=== PATIENT | male | born 1930 | race Asian ===

== ENCOUNTER 2021-02-18 06:03 | Inpatient (IN) | payer MEDICARE, BC ==
[~2021-02-18] VITALS: Ht 165.1 cm; Wt 62.1 kg
[2021-02-18] MEDS ORDERED: ACET-2154 PO (06:19)
[2021-02-18] MEDS ORDERED: LEVO112T5 PO (06:19)
[2021-02-18] MEDS ORDERED: MAGN400O6 PO (06:19)
[2021-02-18] MEDS ORDERED: MELATONIN TOP (06:19)
--- NOTE | 2021-02-18 06:30 | NUR ---
Dr. Vallecillo at bedside for MSE.
--- NOTE | 2021-02-18 06:40 | NUR ---
John Paul abdullahi in [facility] - 02/18/21 at 0646 by [id number] Patient out of unit for ct scan via [place].
--- NOTE | 2021-02-18 06:45 | NUR ---
Pt out of ER for CT.
[2021-02-18 06:54] LABS: MEAN CORPUSCULAR HEMOGLOBIN 31.3 uug (23.8-33.4); PLATELET COUNT (AUTO) 163 K/uL (152-348)
[2021-02-18 06:58] LABS: CREATININE 0.8 mg/dL (0.6-1.3); POTASSIUM 4.3 mmol/L (3.5-5.1)
--- NOTE | 2021-02-18 06:59 | NUR ---
Pt back to ER from CT.
--- NOTE | 2021-02-18 07:00 | NUR ---
Received pt 89 yrs male from [facility] RN PT asleepy respiration spont pt back fron ct scan not done pt uncoprative pt pale abdomen soft
[2021-02-18 07:11] LABS: BILIRUBIN,DIRECT 0.1 mg/dL (0.0-0.2); BILIRUBIN,TOTAL 0.3 mg/dL (0.2-1.0); TOTAL PROTEIN, SERUM 4.4 g/dL (6.4-8.2)
[2021-02-18] MEDS ORDERED: MORPHINE SULFATE 4 MG/1 ML DISP.SYRIN IV ONE (07:15)
[2021-02-18 07:33] LABS: HEMATOCRIT 14.2 % (36.7-47.1)
[2021-02-18 07:34] LABS: THYROID STIMULATING HORMONE 3.801 mIU/mL (0.358-3.740)
[2021-02-18] MEDS ORDERED: MORPHINE SULFATE 4 MG/1 ML DISP.SYRIN ONE (07:38)
[2021-02-18 07:41] LABS: ACETAMINOPHEN < 2.0 ug/mL (10-30)
--- NOTE | 2021-02-18 08:00 | NUR ---
see pt had BM BLCK CORE stool for OB done md postive skin care done morphine 3mg give to ct scan of head and abdomin
[2021-02-18 08:04] LABS: IRON, SERUM 18 ug/dL (50-175)
--- NOTE | 2021-02-18 08:55 | NUR ---
sign concent for blood trransfution fully and verblized understood
--- NOTE | 2021-02-18 09:43 | NUR ---
started 1 unit of blood transfution fallow p&p with 2 RN AT BED side 15 min no transfution reation
--- NOTE | 2021-02-18 10:59 | NUR ---
Resting and asleepy no abdominal pain noted at bed side waitng for inpt kristina blood transfution going on AT THIS TIME
--- NOTE | 2021-02-18 11:12 | NUR ---
COMPLET 1 unit of blood transfution no any s&s of transfution reaction
--- NOTE | 2021-02-18 12:39 | NUR ---
resting and asleepy wating for talemetery bed
[2021-02-18] MEDS: QUETIAPINE FUMARATE 25 MG TABLET PO PRN (12:44)
[2021-02-18] MEDS ORDERED: QUETIAPINE FUMARATE 25 MG TABLET ONE (12:50)
--- NOTE | 2021-02-18 13:30 | NUR ---
had bm scanty black color skine care done
[2021-02-18 14:25] LABS: LYMPHOCYTES % (MANUAL) 8 % (20-40); NEUTROPHILS % (MANUAL) 88 % (42-75)
[2021-02-18 14:26] LABS: MONOCYTES % (MANUAL) 4 % (2-10)
--- NOTE | 2021-02-18 14:43 | NUR ---
STarted 2nd unite of PRBC 2 nurse rn at bed side fallow p&p infused and patent no blood reaction for firest 15 min
--- NOTE | 2021-02-18 16:00 | NUR ---
WATING FOR ROOM TELMETER BED
--- NOTE | 2021-02-18 18:30 | NUR ---
VIC MATOS HERE SEE AND examine pt spook with aware sbp go down 78mmhg 2 unite of back cell was given
--- NOTE | 2021-02-18 19:00 | NUR ---
PT HAD BM BLACK COLOR LARGE AMT I&O CATHETER DONE UA sent to lab
--- NOTE | 2021-02-18 19:08 | NUR ---
John Paul abdullahi in [facility] - 02/18/21 at 1956 by MARIA ELENA RECEIVED REPORT FROM [facility], REGISTRY. PT NOTED TO BE IN BED, RESTING COMFORTABLY.
--- NOTE | 2021-02-18 19:12 | NUR ---
RECEIVED REPORT FROM [facility], REGISTRY. PT NOTED TO BE IN BED, RESTING COMFORTABLY.
--- NOTE | 2021-02-18 19:30 | NUR ---
hand off to LISHA MABRY
--- NOTE | 2021-02-18 19:54 | NUR ---
ASSISTED PT TO USE URINATL, URINE OUTPUT OF 325CC NOTED.
[2021-02-18] MEDS ORDERED: FUROSEMIDE 20 MG/2 ML VIAL IV ONE (20:00)
[2021-02-18] MEDS ORDERED: ACETAMINOPHEN 650 MG SUPP.RECT RC PRN (20:00)
[2021-02-18] MEDS ORDERED: BISACODYL 10 MG SUPP.RECT RC PRN (20:00)
[2021-02-18] MEDS ORDERED: ONDANSETRON 4 MG/2 ML VIAL IV PRN (20:00)
[2021-02-18] MEDS ORDERED: BISACODYL 10 MG SUPP.RECT RC ONE ×2 (20:00→20:51)
[2021-02-18 20:07] LABS: *BILIRUBIN,URIN NEGATIVE (NEGATIVE); *BLOOD, URINE NEGATIVE (NEGATIVE); *CLARITY,URINE CLEAR (CLEAR); *COLOR,URINE YELLOW (YELLOW); *KETONES,URINE NEGATIVE (NEGATIVE); *UROBILINOGEN,URINE 0.2 E.U./dl (NORMAL); LEUKOCYTE ESTERASE ,URINE NEGATIVE (NEGATIVE); NITRITE, URINE NEGATIVE (NEGATIVE); UGLUCOSE NEGATIVE (NEGATIVE)
[2021-02-18 20:09] LABS: MEAN CORPUSCULAR HEMOGLOBIN 30.8 uug (23.8-33.4); MEAN CORPUSCULAR VOLUME 89.1 fL (73.0-96.2); PLATELET COUNT (AUTO) 107 K/uL (152-348)
[2021-02-18 20:12] LABS: HEMATOCRIT 19.2 % (36.7-47.1)
[2021-02-18 20:18] LABS: *AMPHETAMINE, URINE NEGATIVE (NEGATIVE); *CANNABINOID, URINE NEGATIVE (NEGATIVE); *COCCAINE, URINE NEGATIVE (NEGATIVE); *OPIATE, URINE POSITIVE (NEGATIVE); *PHENCYCLIDINE SCREEN,URINE NEGATIVE (NEGATIVE); BACTERIA,URINE NONE SEEN /HPF (NONE SEEN); RBC,URINE NONE SEEN /HPF (0-3); SQUAMOUS EPITHELIAL CELL,UR NONE SEEN /HPF (NONE SEEN); WBC,URINE 0-3 /HPF (0-3)
[2021-02-18 20:30] VITALS: BP 118/58
[2021-02-18 20:42] LABS: EOSINOPHILS % (MANUAL) 1 % (0-8); LYMPHOCYTES % (MANUAL) 13 % (20-40); MONOCYTES % (MANUAL) 9 % (2-10); NEUTROPHILS % (MANUAL) 77 % (42-75)
[2021-02-18] MEDS ORDERED: FUROSEMIDE 20 MG/2 ML VIAL ONE (20:51)
--- NOTE | 2021-02-18 22:00 | NUR ---
GAVE REPORT TO CLOTILDE HOLLINGSWORTH.
[2021-02-18 22:30] VITALS: BP 118/58
--- NOTE | 2021-02-18 22:30 | NUR ---
Pt. admitted to CCU BED 4 , under care of Dr. ROGER Belongs List completed
--- NOTE | 2021-02-18 22:30 | NUR ---
Received patient from ER, here for AMS and severe anemia. Transfused 2 units RBCs in the ER. Patient currently responsive to verbal and tactile stimuli, though is non-verbal, doesn't appear to even register when I say to him. Sinus rhythm on the monitor with PACs, BP stable, on room air SAT 97-100%. Skin appears clear. Bilateral lower extremities are quite rigid and board-like. Upper extremities also rigid at 90 degree angles. Patient arrived in a diaper, will hold on inserting a Francisco due to CT showing very enlarged prostate.
[2021-02-18] MEDS: PIPERACILLIN SODIUM/TAZOBACTAM 3.375 G in IV DEXTROSE 5% 50 ML IV SCH (22:55)
[2021-02-18] MEDS: IV D5/ 0.9% NACL 1,000 ML IV PRN (22:55)
[2021-02-18 23:00] VITALS: BP 110/52
[2021-02-19] VITALS (24 sets, daily range): BP systolic 95–130; BP diastolic 42–72
--- NOTE | 2021-02-19 00:30 | NUR ---
Fecal impaction removed via mechanical digital extraction and tap water enema. Patient produced large amounts of formed and soft tarry stools black in appearance. Abdomen soft and nontender, no distension noted.
[2021-02-19 05:35] LABS: MEAN CORPUSCULAR HEMOGLOBIN 30.2 uug (23.8-33.4); MEAN CORPUSCULAR VOLUME 89.3 fL (73.0-96.2); PLATELET COUNT (AUTO) 109 K/uL (152-348)
[2021-02-19 05:51] LABS: BILIRUBIN,TOTAL 0.5 mg/dL (0.2-1.0); CREATININE 0.8 mg/dL (0.6-1.3); MAGNESIUM 2.1 mg/dL (1.8-2.4); PHOSPHOROUS 3.3 mg/dL (2.5-4.9); POTASSIUM 3.5 mmol/L (3.5-5.1); TOTAL PROTEIN, SERUM 4.6 g/dL (6.4-8.2)
[2021-02-19] MEDS: PIPERACILLIN SODIUM/TAZOBACTAM 3.375 G in IV DEXTROSE 5% 50 ML IV SCH ×3 (05:52→21:34)
[2021-02-19 05:58] LABS: HEMATOCRIT 20.3 % (36.7-47.1)
[2021-02-19] MEDS ORDERED: PANTOPRAZOLE SODIUM 40 MG VIAL IV SCH (09:00)
[2021-02-19] MEDS: QUETIAPINE FUMARATE 25 MG TABLET PO PRN (09:47)
[2021-02-19] MEDS: LORAZEPAM 2 MG/1 ML VIAL IV PRN ×2 (14:26→20:54)
[2021-02-19] MEDS: IV D5/ 0.9% NACL 1,000 ML IV PRN (14:30)
[2021-02-19 15:28] LABS: EOSINOPHILS % (MANUAL) 2 % (0-8); LYMPHOCYTES % (MANUAL) 11 % (20-40); MONOCYTES % (MANUAL) 6 % (2-10); NEUTROPHILS % (MANUAL) 81 % (42-75)
[2021-02-19] MEDS ORDERED: IV DEXTROSE 5% 100 ML BAG IV PRN (19:00)
--- NOTE | 2021-02-19 19:00 | NUR ---
received awake , unable to follow command , on room air , dr atkins is here to see patient , dw at 75 ml/ hr , incontinent no fever
[2021-02-19] MEDS: IV D5W 1000ML 1,000 ML IV PRN (19:44)
[2021-02-19] MEDS: PANTOPRAZOLE SODIUM 40 MG VIAL IV SCH (20:45)
--- NOTE | 2021-02-19 21:00 | NUR ---
kaylah id is here to see patient , updates given about the patient
[2021-02-19] MEDS: MORPHINE SULFATE 2 MG/1 ML DISP.SYRIN IV PRN (23:50)
--- NOTE | 2021-02-19 23:50 | NUR ---
report given to yosi , history and dx , medication given and plan and results of radiology , iv started 22 ga left ac , right 18 ga , patient pulled out , pressure applied
--- NOTE | 2021-02-20 00:15 | NUR ---
RECEIVED PT FROM CCU. PT IN NO ACUTE DISTRESS. IV INTACT. SAFETY AND COMFORT PROVIDED. WILL CONTINUE TO MONITOR. Addendum: 02/20/21 at 0349 by ELLIE LANGE RN PER REPORT PT HAD 1 UNIT PRBC FOR HEMOGLOBIN OF 6.9. AM LABS ORDERED.
--- NOTE | 2021-02-20 04:00 | NUR ---
belongings sent and given to the nurse
[2021-02-20] MEDS: LORAZEPAM 2 MG/1 ML VIAL IV PRN (04:37)
--- NOTE | 2021-02-20 04:37 | NUR ---
Pt restless, trying to pull out his iv,and disturbing other pt by screaming. Ativan 0.5mg prn given. Pt tolerated it well. Pt on sinus rhythm and oxygen saturation of 95%. Will continue to monitor.
--- NOTE | 2021-02-20 05:24 | NUR ---
PT SLEPT INTERMITTENTLY. PT IN NO ACUTE DISTRESS. PT STABLE. PT CONFUSED.PRESCRIBED MEDICATION GIVEN AND PT TOLERATED IT WELL. PT ON SINUS RHYTHM.. SAFETY AND COMFORT PROVIDED. ALL NEEDS ARE MET. WILL ENDORSE TO INCOMING NURSE FOR CONTINUITY OF CARE.
[2021-02-20] MEDS: PIPERACILLIN SODIUM/TAZOBACTAM 3.375 G in IV DEXTROSE 5% 50 ML IV SCH (05:27)
[2021-02-20 07:07] LABS: HEMATOCRIT 24.9 % (36.7-47.1); MEAN CORPUSCULAR HEMOGLOBIN 31.2 uug (23.8-33.4); MEAN CORPUSCULAR VOLUME 92.4 fL (73.0-96.2); PLATELET COUNT (AUTO) 101 K/uL (152-348)
[2021-02-20 07:47] LABS: CREATININE 0.7 mg/dL (0.6-1.3); POTASSIUM 3.2 mmol/L (3.5-5.1)
--- NOTE | 2021-02-20 08:00 | NUR ---
RECEIVED PATIENT SEVERELY CONFUSED X3, UNABLE TO FOLLOW INSTRUCTION, KEPT NPO DUE TO ALOC. SR ON MONITOR
[2021-02-20] MEDS: PANTOPRAZOLE SODIUM 40 MG VIAL IV SCH ×2 (08:05→21:13)
[2021-02-20] MEDS: QUETIAPINE FUMARATE 25 MG TABLET PO PRN ×2 (08:34→16:19)
[2021-02-20] MEDS: IV D5W 1000ML 1,000 ML IV PRN (10:00)
[2021-02-20] MEDS: POTASSIUM CHLORIDE 50 ML IV SCH ×4 (10:20→13:10)
[2021-02-20 11:59] VITALS: BP 121/55
--- NOTE | 2021-02-20 12:00 | NUR ---
NO ACUTE CHANGE FROM MORNING ASSESSMENT, CONTINUE IVF ORDERED
[2021-02-20] MEDS: PIPERACILLIN SODIUM/TAZOBACTAM 3.375 G in IV DEXTROSE 5% 100 ML IV SCH ×2 (14:51→21:13)
[2021-02-20 16:00] VITALS: BP 121/67
--- NOTE | 2021-02-20 18:48 | NUR ---
CONTINUE NPO ORDERED. PATIENT REMAINS CONFUSED AND DISORIENTED X3 CLOSELY MONITORED
--- NOTE | 2021-02-20 19:30 | NUR ---
RECEIVED PT IN NO ACUTE DISTRESS. PT CONFUSED. IV INTACT. SAFETY AND COMFORT PROVIDED. WILL CONTINUE TO MONITOR.
[2021-02-20 20:30] VITALS: BP 128/63
[2021-02-21] MEDS: LORAZEPAM 2 MG/1 ML VIAL IV PRN (00:03)
--- NOTE | 2021-02-21 01:05 | NUR ---
AT 0003H ATIVAN PRN GIVEN FOR PT FOR RESTLESSNESS, PT TRYING TO PULL OUT HIS IV. PT VITAL SIGNS STABLE. SAFETY PROVIDED. WILL CONTINUE TO MONITOR.
[2021-02-21] MEDS: IV D5W 1000ML 1,000 ML IV PRN (01:12)
[2021-02-21 04:30] VITALS: BP 142/64
--- NOTE | 2021-02-21 05:07 | NUR ---
PT IN NO ACUTE DISTRESS. CALLED OF THE PT LAST NIGHT FOR CONSENT EGD LATER. PT IN NO ACUTE DISTRESS. PT STABLE. SAFETY AND COMFORT PROVIDED. ALL NEEDS ARE MET.WILL ENDORSE TO INCOMING NURSE FOR CONTINUITY OF CARE.
[2021-02-21 05:17] VITALS: BP 156/75
[2021-02-21] MEDS: PIPERACILLIN SODIUM/TAZOBACTAM 3.375 G in IV DEXTROSE 5% 100 ML IV SCH (05:21)
--- NOTE | 2021-02-21 08:00 | NUR ---
RECEIVED PATIENT AWAKE BUT REMAINS CONFUSED X3, NO SIGNS OF DISTRESS KEPT NPO FOR EGD
[2021-02-21] MEDS: PANTOPRAZOLE SODIUM 40 MG VIAL IV SCH ×2 (08:09→22:22)
[2021-02-21 08:28] LABS: HEMATOCRIT 26.1 % (36.7-47.1); MEAN CORPUSCULAR VOLUME 89.4 fL (73.0-96.2); PLATELET COUNT (AUTO) 117 K/uL (152-348)
[2021-02-21 08:35] LABS: CREATININE 0.7 mg/dL (0.6-1.3); POTASSIUM 3.5 mmol/L (3.5-5.1)
[2021-02-21 08:53] VITALS: BP 137/65
[2021-02-21] MEDS: CALCIUM CARB/VITAMIN D 600-400 MG TABLET PO SCH (09:00)
--- NOTE | 2021-02-21 11:36 | NUR ---
Clinical Social Work Note Social work consultation was requested as family wanted to discuss DNR status. JUAN spoke with patients Kasandra Pelaez [phone] who requested to speak with SW. Mrs. Pelaez stated that she wanted help with setting up DNR, but that has been done with the help of the nurse connecting her to the MD. MD, Dr. Reyes, has now put patient on DNR. Mrs. Slaughter stated there was no other supported she needed from at this moment.
[2021-02-21 11:55] VITALS: BP 123/66
[2021-02-21 16:07] VITALS: BP 96/74
--- NOTE | 2021-02-21 18:06 | NUR ---
WENT TO OR FOR EGD BY DR HANCOCK VIA BED
--- NOTE | 2021-02-21 21:15 | NUR ---
BACK FROM EGD VIA BED, NREEDS ATTENDED TO,DNR STATUS,ON ROOM AIR,REPOSITIONED FOR COMFORT.
[2021-02-21 22:20] VITALS: BP 136/51
--- NOTE | 2021-02-22 00:48 | NUR ---
NO ACUTE DISTRESS NOTED.SLEPT AT LONG INTERVALS.
[2021-02-22 04:30] VITALS: BP 122/35
--- NOTE | 2021-02-22 06:15 | NUR ---
uneventful night, slept throughout the night, no acute distress. call lights within reach, safety measures maintained, bed alarm on
[2021-02-22] MEDS: LEVOTHYROXINE SODIUM 112 MCG TABLET PO SCH (06:40)
[2021-02-22 08:00] VITALS: BP 130/68
--- NOTE | 2021-02-22 08:00 | NUR ---
Pt received asleep, in his bed. Pt difficult to wake up, falls back asleep. Breathing is unlabored, no distress. IV D5 running at 75cc. Side rails are up. Comfort provided.
[2021-02-22 08:06] LABS: HEMATOCRIT 24.3 % (36.7-47.1); MEAN CORPUSCULAR HEMOGLOBIN 30.2 uug (23.8-33.4); MEAN CORPUSCULAR VOLUME 88.2 fL (73.0-96.2); PLATELET COUNT (AUTO) 127 K/uL (152-348)
[2021-02-22 08:10] LABS: CREATININE 0.6 mg/dL (0.6-1.3); POTASSIUM 3.2 mmol/L (3.5-5.1)
[2021-02-22] MEDS: CALCIUM CARB/VITAMIN D 600-400 MG TABLET PO SCH (09:00)
[2021-02-22] MEDS ORDERED: POTASSIUM CHLORIDE 20 MEQ TAB.PRT.SR PO ONE (10:45)
[2021-02-22 11:05] VITALS: BP 115/46
[2021-02-22] MEDS: IV D5W 1000ML 1,000 ML IV PRN (11:27)
[2021-02-22 11:31] LABS: *RHEUMATOID FACTOR SCREEN NEGATIVE (NEGATIVE)
[2021-02-22] MEDS: PANTOPRAZOLE SODIUM 40 MG VIAL IV SCH ×2 (11:32→21:26)
[2021-02-22 12:31] LABS: FERRITIN 22 ng/mL (26-388)
[2021-02-22] MEDS ORDERED: POTASSIUM CHLORIDE 20 MEQ POWDER PACKET PO ONE (14:45)
[2021-02-22 15:03] VITALS: BP 127/46
--- NOTE | 2021-02-22 17:00 | NUR ---
Pt was evaluated by speech therapy. Pt is ordered Full liquid diet, nectar thick. Signs are posted in the room.
[2021-02-22] MEDS: SOD FERRIC GLUC COMPLX/SUCROSE 125 MG in IV NORMAL SALINE 100 ML IV SCH (17:13)
--- NOTE | 2021-02-22 18:45 | NUR ---
Pt is resting in bed. pt was mostly asleep during the shift. No distress noted. pt was able to have small amount of liquids (boost, Jello.), side rails are up.
[2021-02-22] MEDS ORDERED: PROPOFOL 200 MG/20 ML BOTTLE IV ONE (18:56)
--- NOTE | 2021-02-22 19:30 | NUR ---
NSG: RECEIVED PT LYING ON BED IN HER ROOM. NO ACUTE DISTRESS. PT CONFUSED. SAFETY AND COMFORT PROVIDED. WILL CONTINUE TO MONITOR.
[2021-02-22 20:00] VITALS: BP 127/54
--- NOTE | 2021-02-22 20:00 | NUR ---
NSG: RECEIVED PT LYING ON BED. PATIENT IN NO ACUTE DISTRESS. PT CONFUSED. IV INTACT. SAFETY AND COMFORT PROVIDED. FAMILY MEMBER AT BED SIDE AT THIS TIME. WILL CONTINUE TO MONITOR.
[2021-02-23] MEDS: IV D5W 1000ML 1,000 ML IV PRN ×2 (00:23→20:57)
[2021-02-23 04:00] VITALS: BP 117/43
--- NOTE | 2021-02-23 05:12 | NUR ---
NSG: Patient slept well throughout the night, no acute distress. call lights within reach, safety measures maintained, bed alarm on. assisted with adl's. continue plan of care.
[2021-02-23] MEDS: LEVOTHYROXINE SODIUM 112 MCG TABLET PO SCH (06:27)
[2021-02-23 08:00] VITALS: BP 95/46
--- NOTE | 2021-02-23 08:00 | NUR ---
Pt received in his bed, awake, but not able to verbally respond. Pt is calm, Right Upper Midline site is intact, D5 is running at 75cc. No fever. O2 canula is in place with 2lpm. No signs of distress. Pt is on Full liquid diet.
[2021-02-23 08:03] LABS: MEAN CORPUSCULAR HEMOGLOBIN 30.4 uug (23.8-33.4); PLATELET COUNT (AUTO) 123 K/uL (152-348)
[2021-02-23 08:40] LABS: CREATININE 0.6 mg/dL (0.6-1.3); POTASSIUM 3.2 mmol/L (3.5-5.1)
[2021-02-23] MEDS ORDERED: POTASSIUM CHLORIDE 20 MEQ POWDER PACKET PO ONE (09:30)
[2021-02-23] MEDS: PANTOPRAZOLE SODIUM 40 MG VIAL IV SCH ×2 (09:36→20:52)
[2021-02-23] MEDS: CALCIUM CARB/VITAMIN D 600-400 MG TABLET PO SCH (09:36)
[2021-02-23] MEDS: BOOST PLUS 237 ML LIQUID (RICH CHOCOLATE) PO SCH ×2 (09:43→17:00)
[2021-02-23 12:00] VITALS: BP 127/65
[2021-02-23] MEDS: SOD FERRIC GLUC COMPLX/SUCROSE 125 MG in IV NORMAL SALINE 100 ML IV SCH (14:43)
[2021-02-23 16:00] VITALS: BP 112/42
[2021-02-23 20:18] VITALS: BP 114/47
[2021-02-23] MEDS: QUETIAPINE FUMARATE 25 MG TABLET PO PRN (21:05)
[2021-02-24] MEDS: LEVOTHYROXINE SODIUM 112 MCG TABLET PO SCH (06:37)
--- NOTE | 2021-02-24 06:52 | NUR ---
Pt slept intermittently throughout the night. Easily arousable for care, but pt non-verbal. JIM midline still patent and intact with ongoing D5 NS 1L running at 75 ml/hr. All due meds given and tolerated well. All needs attended. Frequent visual checks done. Will endorse to next shift.
[2021-02-24 07:57] LABS: HEMATOCRIT 22.5 % (36.7-47.1); MEAN CORPUSCULAR HEMOGLOBIN 30.2 uug (23.8-33.4); MEAN CORPUSCULAR VOLUME 89.6 fL (73.0-96.2); PLATELET COUNT (AUTO) 127 K/uL (152-348)
[2021-02-24] MEDS: PANTOPRAZOLE SODIUM 40 MG VIAL IV SCH ×2 (08:21→20:42)
[2021-02-24] MEDS: CALCIUM CARB/VITAMIN D 600-400 MG TABLET PO SCH (08:21)
[2021-02-24] MEDS: BOOST PLUS 237 ML LIQUID (RICH CHOCOLATE) PO SCH ×2 (08:23→17:50)
[2021-02-24 08:24] LABS: CREATININE 0.8 mg/dL (0.6-1.3); POTASSIUM 3.9 mmol/L (3.5-5.1)
[2021-02-24 11:26] VITALS: BP 106/63
[2021-02-24] MEDS: SOD FERRIC GLUC COMPLX/SUCROSE 125 MG in IV NORMAL SALINE 100 ML IV SCH (13:55)
[2021-02-24] MEDS ORDERED: SUCRALFATE 1 G TABLET PO SCH (14:00)
[2021-02-24 16:00] VITALS: BP 103/66
[2021-02-24] MEDS: SUCRALFATE 1 G TABLET PO SCH ×2 (16:22→20:42)
--- NOTE | 2021-02-24 19:04 | NUR ---
pt in bed awake and responsive. no resp distress noted. assisted with dinner. no n/v/d noted. hob elevated at all times for aspiration precautions. due meds given and tolerated. safety measures in place. needs attended to. cont monitor.
--- NOTE | 2021-02-24 19:30 | NUR ---
RECEIVED PT IN NO ACUTE DISTRESS. PT CONFUSED. PT ON 2L NASAL CANNULA. PT IV INTACT. SAFETY AND COMFORT PROVIDED. WILL CONTINUE TO MONITOR.
[2021-02-24 20:00] VITALS: BP 105/78
[2021-02-24] MEDS: LORAZEPAM 2 MG/1 ML VIAL IV PRN (20:43)
--- NOTE | 2021-02-24 21:50 | NUR ---
PT GIVEN ATIVAN 0.5MG AT 2042H FOR RESTLESSNESS,PT TRYING PULL OUT HIS IV. AFTER AN HOUR PT RELAX AND SLEEPING. PT IN NO ACUTE DISTRESS. PT STABLE. WILL CONTINUE TO MONITOR.
[2021-02-25] VITALS (8 sets, daily range): BP systolic 92–138; BP diastolic 42–71
[2021-02-25] MEDS: LEVOTHYROXINE SODIUM 112 MCG TABLET PO SCH (06:24)
[2021-02-25] MEDS: SUCRALFATE 1 G TABLET PO SCH ×4 (06:31→20:53)
--- NOTE | 2021-02-25 06:38 | NUR ---
PT SLEPT INTERMITTENTLY. IV INTACT. PT ON 2L NASAL CANNULA. PT TURNED AND REPOSITIONED.PT CONFUSED AND NEEDS REORIENTATION. SAFETY AND COMFORT PROVIDED. ALL NEEDS ARE MET. WILL ENDORSE TO INCOMING NURSE FOR CONTINUITY OF CARE.
--- NOTE | 2021-02-25 07:30 | NUR ---
received pt sleeping . no resp distress. on nc 2 Lpm satting 95% no sob noted. eduarda midline intact. safety measures in place. will cont to monitor.
[2021-02-25 07:32] LABS: MEAN CORPUSCULAR HEMOGLOBIN 30.4 uug (23.8-33.4); MEAN CORPUSCULAR VOLUME 90.7 fL (73.0-96.2); PLATELET COUNT (AUTO) 134 K/uL (152-348)
[2021-02-25 07:42] LABS: HEMATOCRIT 19.9 % (36.7-47.1)
[2021-02-25] MEDS: PANTOPRAZOLE SODIUM 40 MG VIAL IV SCH ×2 (08:37→21:12)
[2021-02-25] MEDS: CALCIUM CARB/VITAMIN D 600-400 MG TABLET PO SCH (08:37)
[2021-02-25] MEDS: BOOST PLUS 237 ML LIQUID (RICH CHOCOLATE) PO SCH ×2 (08:43→16:51)
[2021-02-25 09:27] LABS: CREATININE 0.7 mg/dL (0.6-1.3); POTASSIUM 3.9 mmol/L (3.5-5.1)
[2021-02-25] MEDS: LORAZEPAM 2 MG/1 ML VIAL IV PRN (10:45)
--- NOTE | 2021-02-25 12:48 | NUR ---
spoke with christiano at lab, blood won't be ready until after 2:30. at bedside made aware. hydraulic hammer operator keh aware.
[2021-02-25] MEDS: SOD FERRIC GLUC COMPLX/SUCROSE 125 MG in IV NORMAL SALINE 100 ML IV SCH (14:07)
[2021-02-25 15:30] LABS: EOSINOPHILS % (MANUAL) 3 % (0-8); LYMPHOCYTES % (MANUAL) 10 % (20-40); MONOCYTES % (MANUAL) 7 % (2-10); NEUTROPHILS % (MANUAL) 80 % (42-75)
--- NOTE | 2021-02-25 15:34 | NUR ---
per 's request to give suppository now instead of later.
[2021-02-25] MEDS: MORPHINE SULFATE 2 MG/1 ML DISP.SYRIN IV PRN ×2 (16:27→21:18)
--- NOTE | 2021-02-25 18:55 | NUR ---
alert and responsive. no acute distress. had episode of agitation today. provided calm and quiet environment. pt calms down when holds his hand. no sob noted. safety measures kept. needs attended to. cont to monitor.
--- NOTE | 2021-02-25 20:00 | NUR ---
PATIENT ASLEEP IN BED, EASILY AROUSABLE. PATIENT RECEIVING BLOOD TRANSFUSION, AT BEDSIDE. VS WNL. NO S/S OF RESP. DISTRESS NOTED. BED ALARM ON. ALL NEEDS ATTENDED.
[2021-02-25] MEDS ORDERED: CLARITHROMYCIN 250 MG TABLET PO SCH (21:00)
[2021-02-25] MEDS: AMOXIcillin 500 MG CAPSULE PO SCH (21:36)
--- NOTE | 2021-02-25 21:40 | NUR ---
BLOOD FINISHED. TRANSFUSED WELL. NO REACTION NOTED.
[2021-02-25 22:41] LABS: *OCCULT BLOOD STOOL POSITIVE (NEGATIVE)
[2021-02-26 04:48] VITALS: BP 134/45
[2021-02-26] MEDS: LEVOTHYROXINE SODIUM 112 MCG TABLET PO SCH (06:05)
--- NOTE | 2021-02-26 08:00 | NUR ---
ALERT BUT NON VERBAL, MOANS ON AND OFF AT BEDSIDE AND SPOKE WITH HOSPITALIST REGARDING PLAN OF CARE
[2021-02-26] MEDS: SUCRALFATE 1 G TABLET PO SCH ×4 (08:09→21:00)
[2021-02-26] MEDS: BOOST PLUS 237 ML LIQUID (RICH CHOCOLATE) PO SCH ×2 (08:10→17:00)
[2021-02-26 08:12] LABS: HEMATOCRIT 24.2 % (36.7-47.1); MEAN CORPUSCULAR HEMOGLOBIN 30.7 uug (23.8-33.4); MEAN CORPUSCULAR VOLUME 89.5 fL (73.0-96.2); PLATELET COUNT (AUTO) 142 K/uL (152-348)
[2021-02-26 08:20] LABS: CREATININE 0.7 mg/dL (0.6-1.3); POTASSIUM 3.8 mmol/L (3.5-5.1)
[2021-02-26] MEDS: PANTOPRAZOLE SODIUM 40 MG VIAL IV SCH ×2 (08:21→22:11)
[2021-02-26] MEDS: CALCIUM CARB/VITAMIN D 600-400 MG TABLET PO SCH (08:21)
[2021-02-26] MEDS: CLARITHROMYCIN 500 MG TABLET PO SCH ×2 (10:50→21:00)
[2021-02-26] MEDS: AMOXIcillin 500 MG CAPSULE PO SCH ×2 (11:02→17:00)
[2021-02-26] MEDS: MORPHINE SULFATE 2 MG/1 ML DISP.SYRIN IV PRN (11:12)
[2021-02-26 12:00] VITALS: BP 109/40
--- NOTE | 2021-02-26 13:00 | NUR ---
PATIENT MOANING ON AND OFF MEDICATED WITH MORPHINE WITH GOOD RELIEF
[2021-02-26] MEDS ORDERED: CLAR-45 PO (13:47)
[2021-02-26] MEDS ORDERED: PANT40TA2 PO (13:47)
[2021-02-26] MEDS ORDERED: AMOX500C2 PO (13:47)
[2021-02-26] MEDS: SOD FERRIC GLUC COMPLX/SUCROSE 125 MG in IV NORMAL SALINE 100 ML IV SCH (15:02)
[2021-02-26 16:00] VITALS: BP 116/48
[2021-02-26 17:01] LABS: *IMMUNOGLOBULIN G, SERUM 540 Low; IMMUNOGLOBULIN A, SERUM 139
[2021-02-26 17:02] LABS: ALPHA-1-GLOBULIN 0.3; ALPHA-2-GLOBULIN 0.6; IMMUNOGLOBULIN M, SERUM 20
[2021-02-26 17:03] LABS: BETA GLOBULIN 0.7; GAMMA GLOBULIN 0.5; GLOBULIN, TOTAL 2.1 Low; M-SPIKE Not Observed
[2021-02-26 17:04] LABS: A/G RATIO 1.1
[2021-02-26 17:11] LABS: ANTI-DNA(DS) AB, QN <1
[2021-02-26 17:12] LABS: *ANTI-SCLERODERMA-70 AB <0.2; *SJOGREN'S ANTI-SS-A >8.0 High; *SJOGREN'S ANTI-SS-B <0.2; *SMITH ANTIBODIES <0.2
--- NOTE | 2021-02-26 18:25 | NUR ---
PLAN DISCHARGE IN AM WITH PENDING HOSPICE CARE. AWARE
--- NOTE | 2021-02-26 20:08 | NUR ---
REceived with at bedside.awake
[2021-02-26 20:18] VITALS: BP 115/40
--- NOTE | 2021-02-26 21:09 | NUR ---
medication po not given.patient is asleep .unable to determine if patient is able to tolerate po medication
[2021-02-27 04:28] VITALS: BP 106/45
[2021-02-27] MEDS: LEVOTHYROXINE SODIUM 112 MCG TABLET PO SCH (07:00)
--- NOTE | 2021-02-27 07:10 | NUR ---
cleaned and kept dry. medication due unable to give.patient is asleep.
[2021-02-27] MEDS: SUCRALFATE 1 G TABLET PO SCH ×2 (07:30→11:30)
--- NOTE | 2021-02-27 07:46 | NUR ---
REPORT GIVEN TO THE DAY SHIFT RN THAT THE MEDICATIONS DUE WERE NOT GIVEN PATIENT IS ASLEEP AND DO NOT RESPOND TO VERBALLY. NEEDS TO FOLLOW UP WITH THE SWALLOW EVALUATION RN ABOUT THE RESULT OF THE SWALLOW EVALUATION Addendum: 02/27/21 at 0753 by REGISTRY [facility] INPATIENT RN3 RN FOR HOSPICE EVALUATION THIS MORNING IS AWARE.
[2021-02-27] MEDS: BOOST PLUS 237 ML LIQUID (RICH CHOCOLATE) PO SCH (08:00)
[2021-02-27] MEDS: AMOXIcillin 500 MG CAPSULE PO SCH (09:00)
[2021-02-27] MEDS: CALCIUM CARB/VITAMIN D 600-400 MG TABLET PO SCH (09:00)
[2021-02-27] MEDS: PANTOPRAZOLE SODIUM 40 MG VIAL IV SCH (09:00)
[2021-02-27] MEDS: CLARITHROMYCIN 500 MG TABLET PO SCH (09:00)
--- NOTE | 2021-02-27 09:37 | NUR ---
PATIENT IS UNABLE TO SWALLOW
[2021-02-27 10:25] VITALS: BP 127/51
--- NOTE | 2021-02-27 11:00 | NUR ---
patient discharged to [facility], family bedside, no skin issues noted, family at bedside refused the discharge pictures to be taken, family stated his skin is fine. patient skin is intact, ID and IV access removed, no acute distress noted, stable condition, patient discharged on hospice service. instructions given to family and sent with ambulance.
== END 2021-02-27 11:25 | DRG 374 ==
LOC: ER 06:10 → OBSER 12:11 → CCU 22:07 → TELE-TD3 02-20 00:01 → TELE3 02-20 00:51 → MEDSURG3 02-20 09:54
PROVIDERS: ADMIT Internal Medicine; ATTEND Nurse Practitioner Acute Care
PROC: 30233N1 Transfusion of Nonautologous Red Blood Cells into Peripheral Vein, Percutaneous Approach (ICD-10-PCS; principal; 2021-02-18)
PROC: 05HB33Z Insertion of Infusion Device into Right Basilic Vein, Percutaneous Approach (ICD-10-PCS; 2021-02-20)
PROC: 0DB68ZX Excision of Stomach, Via Natural or Artificial Opening Endoscopic, Diagnostic (ICD-10-PCS; 2021-02-21)
DX: C16.0 Malignant neoplasm of cardia (principal); A41.9 Sepsis, unspecified organism; G92.8 Other toxic encephalopathy; E43 Unspecified severe protein-calorie malnutrition; J69.0 Pneumonitis due to inhalation of food and vomit; D62 Acute posthemorrhagic anemia; K92.2 Gastrointestinal hemorrhage, unspecified; D61.818 Other pancytopenia; D68.59 Other primary thrombophilia; E87.0 Hyperosmolality and hypernatremia; K56.41 Fecal impaction; B96.81 Helicobacter pylori [H. pylori] as the cause of diseases classified elsewhere; E03.9 Hypothyroidism, unspecified; E86.0 Dehydration; E87.6 Hypokalemia; K29.50 Unspecified chronic gastritis without bleeding; F02.80 Dementia in other diseases classified elsewhere, unspecified severity, without behavioral disturbance, psychotic disturbance, mood disturbance, and anxiety; G30.9 Alzheimer's disease, unspecified; G31.9 Degenerative disease of nervous system, unspecified; I10 Essential (primary) hypertension; I44.4 Left anterior fascicular block; I67.2 Cerebral atherosclerosis; I70.0 Atherosclerosis of aorta; N40.0 Benign prostatic hyperplasia without lower urinary tract symptoms; R13.10 Dysphagia, unspecified; R62.7 Adult failure to thrive; Z20.822 Contact with and (suspected) exposure to COVID-19; Z66 Do not resuscitate; Z87.891 Personal history of nicotine dependence
CPT/HCPCS: 36415; 70030-TC; 70450; 71045; 71250; 82378; 82747; 82784; 83550; 83605; 83735; 84100; 84153; 84155; 84165; 84443; 85014; 85025; 85610; 85730; 86038; 86334; 86430; 86850; 86900; 86901; 86920; 87086; 88313-TC; 88342; 93005; 97161; A4217; A4663; A6209; C9113; G0378; J1940; J2060; J2270; J2543; J2916; J3480; J3490; J7030; J7040; J7042; J7060; J7070; P9016